=== PATIENT | female | born 1960 | race Caucasian/White ===

== ENCOUNTER 2017-01-20 13:05 | Outpatient (CLI) | payer OTHER ==
--- NOTE | 2017-01-20 17:39 | DIAGNOSTIC IMAGING REPORT ---
PROCEDURE: MG BILATERAL SCREENING W/CAD INDICATION: Screening, remote family history of maternal aunt with breast cancer. TECHNIQUE: Standard CC and MLO views bilaterally. Computer aided detection was used. COMPARISON: 12/18/2015, 09/05/2014, 07/05/2013, 10/30/2009 FINDINGS: Mild to moderately dense patchy fibroglandular tissue is present bilaterally. No developing densities, areas of architectural distortion, or suspicious microcalcifications. Multiple areas of dystrophic calcifications in the left breast are stable. IMPRESSION: 1. Stable mammograms without radiographic evidence of malignancy. RESULT CODE: 2- Benign findings. A. A negative report should not delay biopsy if a dominant or clinically suspicious mass is present. 10-15% of cancers are not identified by x-ray. B. A negative report may reinforce clinical impression. C. Adenosis and dense breasts may obscure an underlying neoplasm. D. False positive reports average 6-10%. E.. A yearly screening mammogram is recommended. A reminder letter will be scheduled.
== END 2017-01-20 23:00 | disposition home or self-care (01) ==
LOC: MAM SRH 13:05
DX: Z12.31 Encounter for screening mammogram for malignant neoplasm of breast (principal); Z80.3 Family history of malignant neoplasm of breast